=== PATIENT | male | born 1940 | race Two or more races ===

== ENCOUNTER 2021-11-05 12:04 | Emergency (ER) | payer OTHER ==
[~2021-11-05] VITALS: Ht 182.9 cm; Wt 72.6 kg
[2021-11-05] MEDS ORDERED: CELEBREX100 MG PO (19:47)
[2021-11-05] MEDS ORDERED: SKELAXIN800 MG PO (19:47)
== END 2021-11-05 20:14 | disposition home or self-care (01) ==
LOC: ER 12:04 → EDBD 14:06 → ER 14:06
DX: M54.9 Dorsalgia, unspecified (principal); R42 Dizziness and giddiness; R53.81 Other malaise